=== PATIENT | male | born 1960 | race Two or more races ===

== ENCOUNTER 2020-11-18 06:54 | Inpatient (IN) | payer OTHER ==
[~2020-11-18] VITALS: Ht 162.6 cm; Wt 89.6 kg
[2020-11-18] MEDS ORDERED: ASCORBIC ACID 500 MG TAB PO ONE (08:15)
[2020-11-18] MEDS ORDERED: AZITHROMYCIN 500MG/ 250ML 250 ML IV ONE (08:15)
[2020-11-18] MEDS ORDERED: ZINC SULFATE 220mg CAP or TAB PO ONE (08:15)
[2020-11-18] MEDS ORDERED: BUDESONIDE (INHALATION) 0.5 MG/2 ML NEB NEB ONE (08:15)
[2020-11-18] MEDS ORDERED: cefTRIAXone 1GM/50ML D5W 50 ML IV ONE (08:15)
[2020-11-18] MEDS ORDERED: DexAMETHasone SOD PHOS 10MG/1ML VIAL INJ IV ONE (08:15)
[2020-11-18 08:55] LABS: Hematocrit 41.1 % (41.0-53.0); Hemoglobin 14.1 g/dL (13.5-17.5); Mean Corpuscular Hgb Conc. 34.2 g/dL (32.0-36.0); Mean Corpuscular Volume 87.7 fL (80.0-100.0); Platelet Count (auto) 285 10^3/uL (140-450); Red Blood Cells 4.69 10^6/uL (4.5-5.90); Red Cell Distribution Width 13.1 % (11.8-14.3); White Blood Cell 27.3 10^3/uL (4.4-10.8)
[2020-11-18 09:03] LABS: Basophils % (manual) 0 (0.0-2.0); Blast Cells 0; Eosinophils % (manual) 0 (0-7); Myelocytes % 0; Promyelocytes % 0; Reactive Lymphocytes 0
[2020-11-18 09:13] LABS: Albumin 2.5 g/dL (3.4-5.0); Anion Gap 8 (5-15); Blood Urea Nitrogen 26 mg/dL (7-18); Calcium 8.7 mg/dL (8.5-10.1); Carbon Dioxide 22 mmol/L (21-32); Chloride 100 mmol/L (98-107); Glucose 336 mg/dL (74-106); Magnesium 2.5 mg/dL (1.6-2.6); Potassium 4.2 mmol/L (3.5-5.1); Sodium 130 mmol/L (136-145)
[2020-11-18 09:19] LABS: Alanine Aminotransferase 55 U/L (16-61); Alkaline Phosphatase 141 U/L (45-117); Aspartate Aminotransferase 26 U/L (15-37); BUN/Creatinine Ratio 20.5; Bilirubin, Total 0.8 mg/dL (0.2-1.0); GFR African American 74 mL/min; GFR Non-African American 61 mL/min; Total Protein 7.2 g/dL (6.4-8.2)
[2020-11-18 09:25] LABS: Band Neutrophils % (manual) 5; Lymphocytes % (manual) 5 (10.0-50.0); Metamyelocytes % 1; Monocytes % (manual) 5 (0-12)
[2020-11-18] MEDS ORDERED: MORPHINE SULF INJ 2 MG/ML SYRINGE 1ML IV PRN ×3 (10:15→13:00)
[2020-11-18] MEDS ORDERED: DEXTROSE (50%) 50ML SYRG IV PRN (10:15)
[2020-11-18] MEDS ORDERED: NITROGLYCERIN 0.4 MG SL TAB SL PRN ×2 (10:15→13:00)
[2020-11-18] MEDS: ACCU-CHEK COMFORT CURVE STRIP VI SCH ×3 (10:52→23:21)
[2020-11-18] MEDS: InsuLIN REG 1unit/0.01ml Soln (100units/ml) SC SCH ×3 (10:57→23:21)
[2020-11-18] MEDS ORDERED: REMDESIVIR PER PHARMACY 0 ML IV SCH (13:00)
[2020-11-18] MEDS ORDERED: LORazepam 0.5 MG TAB PO PRN (13:00)
[2020-11-18] MEDS ORDERED: ONDANSETRON HCL 4 MG/2 ML VIAL IV PRN (13:00)
[2020-11-18] MEDS ORDERED: ACETAMINOPHEN 500 MG TAB PO PRN (13:00)
[2020-11-18] MEDS ORDERED: HYDROcodone-ACET 5/325MG TAB PO PRN (13:00)
[2020-11-18] MEDS ORDERED: ALUM & MAG HYDROX-SIMETH LIQ(MAALOX) 30 ML PO PRN (13:00)
[2020-11-18] MEDS ORDERED: DOCUSATE SOD 100 MG CAP PO PRN (13:00)
[2020-11-18] MEDS ORDERED: ALBUMIN 25% 50 ML IV ONE (13:15)
[2020-11-18] MEDS ORDERED: ENOXAPARIN SOD 40 MG/0.4 ML SYRINGE SC ONE (13:15)
[2020-11-18] MEDS ORDERED: FUROSEMIDE 40 MG/4 ML VIAL IV ONE (13:15)
[2020-11-18] MEDS ORDERED: TADA20TA50 PO (14:52)
[2020-11-18] MEDS ORDERED: LISI-646 PO (14:52)
[2020-11-18] MEDS ORDERED: METF-372 PO (14:52)
[2020-11-18] MEDS ORDERED: GLIM-5 PO (14:52)
[2020-11-18] MEDS ORDERED: CARV25TA55 PO (15:23)
[2020-11-18] MEDS ORDERED: CYAN100T7 PO (15:27)
[2020-11-18] MEDS ORDERED: CALC1CAP3 PO (15:27)
[2020-11-18] MEDS ORDERED: MAGN400C2 PO (15:27)
[2020-11-18] MEDS ORDERED: CHOL20007 PO (15:27)
[2020-11-18] MEDS: FUROSEMIDE 40 MG/4 ML VIAL IV SCH (17:56)
[2020-11-18] MEDS ORDERED: FUROSEMIDE 20 MG/2 ML VIAL IV SCH (18:00)
[2020-11-18] MEDS ORDERED: metFORMIN HYDROCHLORIDE 500 MG TAB PO SCH (18:00)
[2020-11-18 18:04] LABS: Basophils # (auto) 0.1 10 ^3/uL (0-0.2); Basophils % (auto) 0.5 % (0.0-2.0); Eosinophils # (auto) 0 10 ^3/uL (0-0.8); Hemoglobin 15.1 g/dL (13.5-17.5); Lymphocytes # (auto) 0.5 10 ^3/uL (0.4-5.4); Lymphocytes % (auto) 1.6 % (10.0-50.0); Mean Corpuscular Hemoglobin 30.9 pg (28.0-32.0); Mean Corpuscular Hgb Conc. 34.4 g/dL (32.0-36.0); Mean Corpuscular Volume 89.9 fL (80.0-100.0); Monocytes # (auto) 0.6 10 ^3/uL (0-1.3); Monocytes % (auto) 2.3 % (0.0-12.0); Neutrophils # (auto) 26.2 10 ^3/uL (1.6-8.6); Neutrophils % (auto) 95.6 % (37.0-80.0); Platelet Count (auto) 328 10^3/uL (140-450); Red Cell Distribution Width 13.2 % (11.8-14.3); White Blood Cell 27.4 10^3/uL (4.4-10.8)
[2020-11-18 18:16] LABS: Albumin 2.8 g/dL (3.4-5.0); Magnesium 2.6 mg/dL (1.6-2.6); Potassium 4.5 mmol/L (3.5-5.1)
[2020-11-18 18:24] LABS: BUN/Creatinine Ratio 22.8; Bilirubin, Total 0.6 mg/dL (0.2-1.0); CRP High Sensitivity 15.7 mg/dL (< 0.3); Total Protein 8.2 g/dL (6.4-8.2)
[2020-11-18 18:34] LABS: Cholesterol 104 mg/dL (< 200); HDL Cholesterol 16 mg/dL (40-59); LDL Cholesterol 80 mg/dL (< 100); Triglycerides 169 mg/dL (< 150)
[2020-11-18 18:36] LABS: Lactic Acid w/Reflex 2.2 mmol/L (0.4-2.0)
[2020-11-18] MEDS ORDERED: REMDESIVIR 200 MG in NS 210ml LOADING DOSE ADULT IV ONE (20:00)
[2020-11-18] MEDS ORDERED: INSULIN LANTUS (GLARGINE) 1 /0.01ml (100units/ml) SC ONE (21:45)
[2020-11-18] MEDS: ENOXAPARIN SOD 40 MG/0.4 ML SYRINGE SC SCH (22:45)
[2020-11-18] MEDS: FAMOTIDINE (10MG/ML) 2ML VL IV SCH (22:45)
[2020-11-18] MEDS: DOXYCYCLINE 100MG/250ML 250 ML IV SCH (22:45)
[2020-11-18] MEDS: ATORVASTATIN 20 MG TAB PO SCH (22:45)
[2020-11-19] MEDS: BUDESONIDE (INHALATION) 180 MCG IH IN SCH ×3 (00:23→22:00)
[2020-11-19] MEDS: ACCU-CHEK COMFORT CURVE STRIP VI SCH ×4 (08:32→22:08)
[2020-11-19 08:33] LABS: Basophils # (auto) 0 10 ^3/uL (0-0.2); Basophils % (auto) 0.2 % (0.0-2.0); Eosinophils # (auto) 0 10 ^3/uL (0-0.8); Hematocrit 41.7 % (41.0-53.0); Hemoglobin 14.5 g/dL (13.5-17.5); Lymphocytes # (auto) 0.6 10 ^3/uL (0.4-5.4); Lymphocytes % (auto) 2.4 % (10.0-50.0); Mean Corpuscular Hemoglobin 31.5 pg (28.0-32.0); Mean Corpuscular Hgb Conc. 34.8 g/dL (32.0-36.0); Mean Corpuscular Volume 90.5 fL (80.0-100.0); Monocytes # (auto) 1.2 10 ^3/uL (0-1.3); Monocytes % (auto) 5.1 % (0.0-12.0); Neutrophils # (auto) 21.7 10 ^3/uL (1.6-8.6); Neutrophils % (auto) 92.3 % (37.0-80.0); Platelet Count (auto) 310 10^3/uL (140-450); White Blood Cell 23.5 10^3/uL (4.4-10.8)
[2020-11-19] MEDS: FUROSEMIDE 40 MG/4 ML VIAL IV SCH (08:38)
[2020-11-19] MEDS: InsuLIN REG 1unit/0.01ml Soln (100units/ml) SC SCH ×4 (08:39→22:12)
[2020-11-19] MEDS: INSULIN LANTUS (GLARGINE) 1 /0.01ml (100units/ml) SC SCH ×2 (08:40→22:12)
[2020-11-19 08:49] LABS: INR 1.08 (0.9-1.15); Partial Thromboplastin Time 26.4 sec (23.0-31.2)
[2020-11-19] MEDS: ALBUTEROL SULF HFA 90MCG INH 200DOSE IN PRN (08:54)
[2020-11-19 09:06] LABS: Potassium 4.3 mmol/L (3.5-5.1)
[2020-11-19 09:14] LABS: Albumin 2.4 g/dL (3.4-5.0); BUN/Creatinine Ratio 26.5; Bilirubin, Total 0.5 mg/dL (0.2-1.0); Calcium 8.4 mg/dL (8.5-10.1); Magnesium 2.7 mg/dL (1.6-2.6); Phosphorus 3.6 mg/dL (2.5-4.90); Total Protein 7.1 g/dL (6.4-8.2)
[2020-11-19 09:30] LABS: Urine Bacteria NONE SEEN /hpf (None Seen); Urine Blood Negative /uL (Negative); Urine Specific Gravity 1.022 (1.001-1.035); Urine WBC 1 /hpf (0 - 3)
[2020-11-19 09:53] LABS: Alcohol, Urine < 3.0 mg/dL (0-10); Amphetamine Screen, Urine NEGATIVE (NEGATIVE); Barbiturate Scree,Urine NEGATIVE (NEGATIVE); Benzodiazephine Screen, Urine NEGATIVE (NEGATIVE); Cannabinoid Screen, Urine NEGATIVE (NEGATIVE); Cocaine Screen, Urine NEGATIVE (NEGATIVE); Opiate Scree,Urine NEGATIVE (NEGATIVE); Phencyclidine Screen, Urine NEGATIVE (NEGATIVE)
[2020-11-19] MEDS ORDERED: LISINOPRIL 20 MG TAB PO SCH (10:00)
[2020-11-19] MEDS: DexAMETHasone SOD PHOS 10MG/1ML VIAL INJ IV SCH (10:41)
[2020-11-19] MEDS: FAMOTIDINE (10MG/ML) 2ML VL IV SCH ×2 (10:42→22:07)
[2020-11-19] MEDS: ZINC SULFATE 220mg CAP or TAB PO SCH (10:45)
[2020-11-19] MEDS: ASPirin 81 mg TAB PO SCH (10:45)
[2020-11-19] MEDS: DOXYCYCLINE 100MG/250ML 250 ML IV SCH (10:45)
[2020-11-19] MEDS: CHOLECALCIFEROL (VITD3) 2,000 UNIT CAP PO SCH (10:46)
[2020-11-19] MEDS: CARVEDILOL 12.5 MG TAB PO SCH (10:46)
[2020-11-19] MEDS: ASCORBIC ACID 1,000 MG TAB PO SCH (10:46)
[2020-11-19] MEDS: ENOXAPARIN SOD 40 MG/0.4 ML SYRINGE SC SCH ×2 (10:47→22:08)
[2020-11-19] MEDS ORDERED: levoFLOXacin 500MG 100 ML IV ONE (11:15)
[2020-11-19] MEDS ORDERED: diphenhdrAMINE HCL 50 MG/1 ML VL IV PRN (11:30)
[2020-11-19] MEDS: CLINDAMYCIN 600MG IV 50 ML IV SCH ×2 (14:00→22:07)
[2020-11-19] MEDS: REMDESIVIR 100mg 100 MG in SODIUM CHL 0.9% 230 ML IV SCH (15:00)
[2020-11-19 16:00] VITALS: BP 138/68
[2020-11-19] MEDS: ATORVASTATIN 20 MG TAB PO SCH (22:07)
[2020-11-20] VITALS: BP 149/67
[2020-11-20] MEDS: ALBUTEROL SULF HFA 90MCG INH 200DOSE IN PRN ×3 (00:11→20:05)
[2020-11-20 01:50] VITALS: BP 129/58
[2020-11-20 02:19] VITALS: BP 158/80
[2020-11-20 04:27] VITALS: BP 148/70
[2020-11-20] MEDS: CLINDAMYCIN 600MG IV 50 ML IV SCH ×3 (06:02→22:39)
[2020-11-20] MEDS: ACCU-CHEK COMFORT CURVE STRIP VI SCH ×4 (06:16→22:00)
[2020-11-20] MEDS: InsuLIN REG 1unit/0.01ml Soln (100units/ml) SC SCH ×4 (06:23→22:39)
[2020-11-20] MEDS: INSULIN LANTUS (GLARGINE) 1 /0.01ml (100units/ml) SC SCH ×2 (06:23→22:37)
[2020-11-20 08:00] VITALS: BP 172/76
[2020-11-20 08:45] LABS: Albumin 2.7 g/dL (3.4-5.0); Calcium 8.9 mg/dL (8.5-10.1); Potassium 4.1 mmol/L (3.5-5.1)
[2020-11-20 08:47] LABS: BUN/Creatinine Ratio 29.9
[2020-11-20 08:50] LABS: Bilirubin, Total 0.5 mg/dL (0.2-1.0); Total Protein 7.1 g/dL (6.4-8.2)
[2020-11-20] MEDS ORDERED: IVERMECTIN 3 MG TAB PO ONE (10:00)
[2020-11-20] MEDS: BUDESONIDE (INHALATION) 180 MCG IH IN SCH ×2 (10:00→20:05)
[2020-11-20] MEDS: DexAMETHasone SOD PHOS 10MG/1ML VIAL INJ IV SCH (10:32)
[2020-11-20] MEDS: FAMOTIDINE (10MG/ML) 2ML VL IV SCH ×2 (10:32→22:39)
[2020-11-20] MEDS: levoFLOXacin 500MG 100 ML IV SCH (10:32)
[2020-11-20] MEDS: CHOLECALCIFEROL (VITD3) 2,000 UNIT CAP PO SCH (10:33)
[2020-11-20] MEDS: CARVEDILOL 12.5 MG TAB PO SCH (10:33)
[2020-11-20] MEDS: ASCORBIC ACID 1,000 MG TAB PO SCH (10:33)
[2020-11-20] MEDS: ASPirin 81 mg TAB PO SCH (10:33)
[2020-11-20] MEDS: ZINC SULFATE 220mg CAP or TAB PO SCH (10:33)
[2020-11-20] MEDS: ENOXAPARIN SOD 40 MG/0.4 ML SYRINGE SC SCH ×2 (10:34→22:37)
[2020-11-20] MEDS: REMDESIVIR 100mg 100 MG in SODIUM CHL 0.9% 230 ML IV SCH (15:11)
[2020-11-20 16:00] VITALS: BP 147/69
[2020-11-20] MEDS: ATORVASTATIN 20 MG TAB PO SCH (22:37)
[2020-11-21] VITALS: BP 173/68
[2020-11-21] MEDS ORDERED: cloNIDine HCL 0.1 MG TAB PO ONE (01:00)
[2020-11-21] MEDS: CLINDAMYCIN 600MG IV 50 ML IV SCH ×2 (06:26→14:15)
[2020-11-21] MEDS: InsuLIN REG 1unit/0.01ml Soln (100units/ml) SC SCH ×4 (06:26→22:06)
[2020-11-21] MEDS: INSULIN LANTUS (GLARGINE) 1 /0.01ml (100units/ml) SC SCH ×2 (06:27→22:09)
[2020-11-21] MEDS: ACCU-CHEK COMFORT CURVE STRIP VI SCH ×4 (06:34→22:10)
[2020-11-21 07:20] LABS: Basophils # (auto) 0 10 ^3/uL (0-0.2); Basophils % (auto) 0.1 % (0.0-2.0); Eosinophils # (auto) 0 10 ^3/uL (0-0.8); Eosinophils % (auto) 0.1 % (0.0-7.0); Hematocrit 43.6 % (41.0-53.0); Hemoglobin 14.8 g/dL (13.5-17.5); Lymphocytes # (auto) 0.9 10 ^3/uL (0.4-5.4); Lymphocytes % (auto) 5.2 % (10.0-50.0); Mean Corpuscular Volume 88.3 fL (80.0-100.0); Monocytes # (auto) 0.8 10 ^3/uL (0-1.3); Monocytes % (auto) 4.8 % (0.0-12.0); Neutrophils # (auto) 15.4 10 ^3/uL (1.6-8.6); Neutrophils % (auto) 89.8 % (37.0-80.0); Platelet Count (auto) 305 10^3/uL (140-450); Red Blood Cells 4.93 10^6/uL (4.5-5.90); Red Cell Distribution Width 12.9 % (11.8-14.3); White Blood Cell 17.2 10^3/uL (4.4-10.8)
[2020-11-21 08:00] VITALS: BP 122/47
[2020-11-21] MEDS: BUDESONIDE (INHALATION) 180 MCG IH IN SCH ×2 (10:24→19:20)
[2020-11-21] MEDS: ALBUTEROL SULF HFA 90MCG INH 200DOSE IN PRN ×2 (10:24→19:20)
[2020-11-21] MEDS: levoFLOXacin 500MG 100 ML IV SCH (12:07)
[2020-11-21] MEDS: DexAMETHasone SOD PHOS 10MG/1ML VIAL INJ IV SCH (12:07)
[2020-11-21] MEDS: FAMOTIDINE (10MG/ML) 2ML VL IV SCH ×2 (12:08→22:11)
[2020-11-21] MEDS: ZINC SULFATE 220mg CAP or TAB PO SCH (12:08)
[2020-11-21] MEDS: ASPirin 81 mg TAB PO SCH (12:08)
[2020-11-21] MEDS: ENOXAPARIN SOD 40 MG/0.4 ML SYRINGE SC SCH ×2 (12:09→22:10)
[2020-11-21] MEDS: ASCORBIC ACID 1,000 MG TAB PO SCH (12:09)
[2020-11-21] MEDS: CHOLECALCIFEROL (VITD3) 2,000 UNIT CAP PO SCH (12:09)
[2020-11-21] MEDS: CARVEDILOL 12.5 MG TAB PO SCH (12:43)
[2020-11-21] MEDS ORDERED: IVERMECTIN 3 MG TAB PO ONE (15:12)
[2020-11-21] MEDS ORDERED: POTASSIUM CHL 10 Meq TABLET PO ONE (15:15)
[2020-11-21] MEDS ORDERED: FUROSEMIDE 40 MG/4 ML VIAL IV ONE (15:30)
[2020-11-21] MEDS: REMDESIVIR 100mg 100 MG in SODIUM CHL 0.9% 230 ML IV SCH (15:57)
[2020-11-21 16:00] VITALS: BP 114/67
[2020-11-21] MEDS: ATORVASTATIN 20 MG TAB PO SCH (22:10)
[2020-11-22] VITALS: BP 120/46
[2020-11-22] MEDS: InsuLIN REG 1unit/0.01ml Soln (100units/ml) SC SCH ×4 (05:32→21:36)
[2020-11-22] MEDS: ACCU-CHEK COMFORT CURVE STRIP VI SCH ×4 (05:33→21:42)
[2020-11-22] MEDS: INSULIN LANTUS (GLARGINE) 1 /0.01ml (100units/ml) SC SCH ×2 (05:33→21:37)
[2020-11-22 06:40] LABS: Basophils # (auto) 0 10 ^3/uL (0-0.2); Basophils % (auto) 0.2 % (0.0-2.0); Eosinophils # (auto) 0 10 ^3/uL (0-0.8); Eosinophils % (auto) 0.3 % (0.0-7.0); Hematocrit 44.4 % (41.0-53.0); Hemoglobin 14.9 g/dL (13.5-17.5); Lymphocytes # (auto) 0.7 10 ^3/uL (0.4-5.4); Lymphocytes % (auto) 4.4 % (10.0-50.0); Mean Corpuscular Hemoglobin 29.5 pg (28.0-32.0); Mean Corpuscular Hgb Conc. 33.5 g/dL (32.0-36.0); Mean Corpuscular Volume 87.9 fL (80.0-100.0); Monocytes # (auto) 0.7 10 ^3/uL (0-1.3); Monocytes % (auto) 4.4 % (0.0-12.0); Neutrophils # (auto) 14.4 10 ^3/uL (1.6-8.6); Neutrophils % (auto) 90.7 % (37.0-80.0); Nucleated Red Blood Cells % 0.2 %; Platelet Count (auto) 305 10^3/uL (140-450); Red Blood Cells 5.05 10^6/uL (4.5-5.90); Red Cell Distribution Width 13.3 % (11.8-14.3); White Blood Cell 15.8 10^3/uL (4.4-10.8)
[2020-11-22 06:43] LABS: INR 1.17 (0.9-1.15)
[2020-11-22 06:44] LABS: Albumin 2.2 g/dL (3.4-5.0); Calcium 8.2 mg/dL (8.5-10.1); Magnesium 2.3 mg/dL (1.6-2.6); Potassium 4.2 mmol/L (3.5-5.1)
[2020-11-22 06:48] LABS: Lactic Acid w/Reflex 2.3 mmol/L (0.4-2.0)
[2020-11-22 06:55] LABS: BUN/Creatinine Ratio 19.2; Bilirubin, Total 0.5 mg/dL (0.2-1.0); CRP High Sensitivity 8.89 mg/dL (< 0.3); Total Protein 6.5 g/dL (6.4-8.2)
[2020-11-22] MEDS: ALBUTEROL SULF HFA 90MCG INH 200DOSE IN PRN ×2 (07:10→20:21)
[2020-11-22] MEDS: BUDESONIDE (INHALATION) 180 MCG IH IN SCH ×2 (07:10→20:21)
[2020-11-22 07:58] VITALS: BP 149/71
[2020-11-22] MEDS: ENOXAPARIN SOD 40 MG/0.4 ML SYRINGE SC SCH ×2 (10:00→21:42)
[2020-11-22] MEDS: DexAMETHasone SOD PHOS 10MG/1ML VIAL INJ IV SCH (10:00)
[2020-11-22] MEDS: ASCORBIC ACID 1,000 MG TAB PO SCH (10:00)
[2020-11-22] MEDS: CHOLECALCIFEROL (VITD3) 2,000 UNIT CAP PO SCH (10:00)
[2020-11-22] MEDS: levoFLOXacin 500MG 100 ML IV SCH (10:00)
[2020-11-22] MEDS: FUROSEMIDE 40 MG/4 ML VIAL IV SCH (10:00)
[2020-11-22] MEDS: ZINC SULFATE 220mg CAP or TAB PO SCH (10:00)
[2020-11-22] MEDS: ASPirin 81 mg TAB PO SCH (10:00)
[2020-11-22] MEDS: CARVEDILOL 12.5 MG TAB PO SCH ×2 (10:00→21:41)
[2020-11-22] MEDS: POTASSIUM CHL 10 Meq TABLET PO SCH (10:00)
[2020-11-22] MEDS: FAMOTIDINE (10MG/ML) 2ML VL IV SCH ×2 (10:00→21:41)
[2020-11-22] MEDS: IVERMECTIN 3 MG TAB PO SCH (11:30)
[2020-11-22 15:40] VITALS: BP 95/53
[2020-11-22] MEDS: REMDESIVIR 100mg 100 MG in SODIUM CHL 0.9% 230 ML IV SCH (16:00)
[2020-11-22] MEDS ORDERED: methylPREDNISolone SOD SUCC 40 MG/ML VL IV ONE (16:30)
[2020-11-22] MEDS ORDERED: diphenhdrAMINE HCL 50 MG/1 ML VL IV ONE (16:30)
[2020-11-22] MEDS ORDERED: ACETAMINOPHEN 650 mg PER 20.3 mL UD PO ONE (16:30)
[2020-11-22] MEDS ORDERED: TOCILIZUMAB 400 MG in SODIUM CHL 0.9% 80 ML IV ONE (17:00)
[2020-11-22] MEDS: ATORVASTATIN 20 MG TAB PO SCH (21:40)
[2020-11-22] MEDS ORDERED: DOXYCYCLINE 100 MG TAB/CAP PO SCH (22:00)
[2020-11-22 23:34] VITALS: BP 117/66
[2020-11-23] MEDS: InsuLIN REG 1unit/0.01ml Soln (100units/ml) SC SCH ×4 (05:35→19:47)
[2020-11-23] MEDS: INSULIN LANTUS (GLARGINE) 1 /0.01ml (100units/ml) SC SCH ×2 (05:36→21:25)
[2020-11-23] MEDS: ACCU-CHEK COMFORT CURVE STRIP VI SCH ×4 (05:36→19:48)
[2020-11-23] MEDS: BUDESONIDE (INHALATION) 180 MCG IH IN SCH ×2 (06:45→19:37)
[2020-11-23] MEDS: ALBUTEROL SULF HFA 90MCG INH 200DOSE IN PRN ×2 (06:45→19:37)
[2020-11-23 06:56] LABS: Basophils # (auto) 0 10 ^3/uL (0-0.2); Basophils % (auto) 0.2 % (0.0-2.0); Eosinophils # (auto) 0 10 ^3/uL (0-0.8); Hematocrit 42.7 % (41.0-53.0); Hemoglobin 14.4 g/dL (13.5-17.5); Lymphocytes # (auto) 0.5 10 ^3/uL (0.4-5.4); Lymphocytes % (auto) 3.3 % (10.0-50.0); Mean Corpuscular Hemoglobin 29.9 pg (28.0-32.0); Mean Corpuscular Hgb Conc. 33.8 g/dL (32.0-36.0); Mean Corpuscular Volume 88.6 fL (80.0-100.0); Monocytes # (auto) 0.4 10 ^3/uL (0-1.3); Monocytes % (auto) 2.8 % (0.0-12.0); Neutrophils # (auto) 13.6 10 ^3/uL (1.6-8.6); Neutrophils % (auto) 93.7 % (37.0-80.0); Platelet Count (auto) 331 10^3/uL (140-450); Red Blood Cells 4.82 10^6/uL (4.5-5.90); Red Cell Distribution Width 13.3 % (11.8-14.3); White Blood Cell 14.5 10^3/uL (4.4-10.8)
[2020-11-23 07:00] LABS: BUN/Creatinine Ratio 20.6; Calcium 8.7 mg/dL (8.5-10.1); Potassium 4.7 mmol/L (3.5-5.1)
[2020-11-23 08:00] VITALS: BP 145/57
[2020-11-23] MEDS ORDERED: ACETAMINOPHEN 650 mg PER 20.3 mL UD PO ONE ×2 (10:00→14:30)
[2020-11-23] MEDS ORDERED: diphenhdrAMINE HCL 50 MG/1 ML VL IV ONE ×2 (10:00→14:30)
[2020-11-23] MEDS ORDERED: TOCILIZUMAB 400 MG in SODIUM CHL 0.9% 80 ML IV ONE ×2 (10:30→15:00)
[2020-11-23] MEDS: FUROSEMIDE 40 MG/4 ML VIAL IV SCH (12:02)
[2020-11-23] MEDS: DexAMETHasone SOD PHOS 10MG/1ML VIAL INJ IV SCH ×2 (12:03→21:34)
[2020-11-23] MEDS: ZINC SULFATE 220mg CAP or TAB PO SCH (12:03)
[2020-11-23] MEDS: ASPirin 81 mg TAB PO SCH (12:03)
[2020-11-23] MEDS: CARVEDILOL 12.5 MG TAB PO SCH ×2 (12:03→21:35)
[2020-11-23] MEDS: FAMOTIDINE (10MG/ML) 2ML VL IV SCH ×2 (12:03→21:34)
[2020-11-23] MEDS: IVERMECTIN 3 MG TAB PO SCH (12:04)
[2020-11-23] MEDS: POTASSIUM CHL 10 Meq TABLET PO SCH (12:04)
[2020-11-23] MEDS: ENOXAPARIN SOD 40 MG/0.4 ML SYRINGE SC SCH ×2 (12:05→21:36)
[2020-11-23] MEDS: CHOLECALCIFEROL (VITD3) 2,000 UNIT CAP PO SCH (12:05)
[2020-11-23] MEDS: ASCORBIC ACID 1,000 MG TAB PO SCH (12:05)
[2020-11-23] MEDS: PIPERACILLIN-TAZOB 3.375GM 100 ML IV SCH ×2 (12:09→18:40)
[2020-11-23] MEDS ORDERED: FUROSEMIDE 20 MG/2 ML VIAL IV ONE (14:15)
[2020-11-23] MEDS ORDERED: methylPREDNISolone SOD SUCC 40 MG/ML VL IV ONE (14:30)
[2020-11-23 16:00] VITALS: BP 154/69
[2020-11-23] MEDS ORDERED: DEXTROSE (50%) 50ML SYRG IV PRN (18:30)
[2020-11-23] MEDS ORDERED: InsuLIN REG 1unit/0.01ml Soln (100units/ml) IV ONE ×2 (18:30→21:00)
[2020-11-23] MEDS: ATORVASTATIN 20 MG TAB PO SCH (21:36)
[2020-11-23] MEDS ORDERED: INSULIN LANTUS (GLARGINE) 1 /0.01ml (100units/ml) SC SCH (22:00)
[2020-11-24] VITALS (7 sets, daily range): BP systolic 113–155; BP diastolic 57–79
[2020-11-24] MEDS: ACCU-CHEK COMFORT CURVE STRIP VI SCH ×7 (00:01→23:22)
[2020-11-24] MEDS: PIPERACILLIN-TAZOB 3.375GM 100 ML IV SCH ×4 (00:02→18:27)
[2020-11-24] MEDS: InsuLIN REG 1unit/0.01ml Soln (100units/ml) SC SCH ×7 (03:59→23:35)
[2020-11-24 06:23] LABS: Basophils # (auto) 0 10 ^3/uL (0-0.2); Basophils % (auto) 0.1 % (0.0-2.0); Eosinophils # (auto) 0 10 ^3/uL (0-0.8); Hematocrit 46.6 % (41.0-53.0); Hemoglobin 15.7 g/dL (13.5-17.5); Lymphocytes # (auto) 0.6 10 ^3/uL (0.4-5.4); Mean Corpuscular Hemoglobin 29.5 pg (28.0-32.0); Mean Corpuscular Hgb Conc. 33.6 g/dL (32.0-36.0); Mean Corpuscular Volume 87.7 fL (80.0-100.0); Monocytes # (auto) 0.5 10 ^3/uL (0-1.3); Monocytes % (auto) 2.4 % (0.0-12.0); Neutrophils # (auto) 17.7 10 ^3/uL (1.6-8.6); Neutrophils % (auto) 94.5 % (37.0-80.0); Nucleated Red Blood Cells % 0.1 %; Platelet Count (auto) 416 10^3/uL (140-450); Red Blood Cells 5.32 10^6/uL (4.5-5.90); Red Cell Distribution Width 13.3 % (11.8-14.3); White Blood Cell 18.8 10^3/uL (4.4-10.8)
[2020-11-24] MEDS: INSULIN LANTUS (GLARGINE) 1 /0.01ml (100units/ml) SC SCH ×2 (06:28→21:20)
[2020-11-24] MEDS: ALBUTEROL SULF HFA 90MCG INH 200DOSE IN PRN ×2 (06:40→19:40)
[2020-11-24] MEDS: BUDESONIDE (INHALATION) 180 MCG IH IN SCH ×2 (06:40→19:39)
[2020-11-24] MEDS: DexAMETHasone SOD PHOS 10MG/1ML VIAL INJ IV SCH ×2 (09:44→21:13)
[2020-11-24] MEDS: ASPirin 81 mg TAB PO SCH (09:44)
[2020-11-24] MEDS: FUROSEMIDE 40 MG/4 ML VIAL IV SCH (09:44)
[2020-11-24] MEDS: ZINC SULFATE 220mg CAP or TAB PO SCH (09:45)
[2020-11-24] MEDS: FAMOTIDINE (10MG/ML) 2ML VL IV SCH ×2 (09:45→21:13)
[2020-11-24] MEDS: ASCORBIC ACID 1,000 MG TAB PO SCH (09:45)
[2020-11-24] MEDS: CARVEDILOL 12.5 MG TAB PO SCH ×2 (09:45→21:55)
[2020-11-24] MEDS: POTASSIUM CHL 10 Meq TABLET PO SCH (09:45)
[2020-11-24] MEDS: ENOXAPARIN SOD 40 MG/0.4 ML SYRINGE SC SCH ×2 (09:46→21:14)
[2020-11-24] MEDS: CHOLECALCIFEROL (VITD3) 2,000 UNIT CAP PO SCH (09:46)
[2020-11-24] MEDS: IVERMECTIN 3 MG TAB PO SCH (09:47)
[2020-11-24] MEDS: ATORVASTATIN 20 MG TAB PO SCH (21:13)
[2020-11-25 00:25] VITALS: BP 138/70
[2020-11-25] MEDS: PIPERACILLIN-TAZOB 3.375GM 100 ML IV SCH ×5 (00:26→23:34)
[2020-11-25 01:25] VITALS: BP 134/71
[2020-11-25] MEDS: ACCU-CHEK COMFORT CURVE STRIP VI SCH ×6 (04:26→23:34)
[2020-11-25] MEDS: InsuLIN REG 1unit/0.01ml Soln (100units/ml) SC SCH ×6 (04:29→23:37)
[2020-11-25 06:38] LABS: Basophils # (auto) 0 10 ^3/uL (0-0.2); Basophils % (auto) 0.2 % (0.0-2.0); Eosinophils # (auto) 0 10 ^3/uL (0-0.8); Hematocrit 46.1 % (41.0-53.0); Hemoglobin 15.7 g/dL (13.5-17.5); Lymphocytes # (auto) 0.6 10 ^3/uL (0.4-5.4); Lymphocytes % (auto) 3.5 % (10.0-50.0); Mean Corpuscular Hemoglobin 29.7 pg (28.0-32.0); Mean Corpuscular Hgb Conc. 34.2 g/dL (32.0-36.0); Monocytes # (auto) 0.8 10 ^3/uL (0-1.3); Monocytes % (auto) 4.4 % (0.0-12.0); Neutrophils # (auto) 16.2 10 ^3/uL (1.6-8.6); Neutrophils % (auto) 91.9 % (37.0-80.0); Nucleated Red Blood Cells % 0.3 %; Platelet Count (auto) 435 10^3/uL (140-450); Red Blood Cells 5.29 10^6/uL (4.5-5.90); White Blood Cell 17.7 10^3/uL (4.4-10.8)
[2020-11-25] MEDS: INSULIN LANTUS (GLARGINE) 1 /0.01ml (100units/ml) SC SCH ×2 (06:48→21:11)
[2020-11-25 06:58] LABS: BUN/Creatinine Ratio 31.5; Calcium 8.6 mg/dL (8.5-10.1); Potassium 4.1 mmol/L (3.5-5.1)
[2020-11-25] MEDS: BUDESONIDE (INHALATION) 180 MCG IH IN SCH ×2 (07:40→19:20)
[2020-11-25 07:43] VITALS: BP 122/65
[2020-11-25] MEDS: FUROSEMIDE 40 MG/4 ML VIAL IV SCH (09:30)
[2020-11-25] MEDS: DexAMETHasone SOD PHOS 10MG/1ML VIAL INJ IV SCH ×2 (09:30→21:07)
[2020-11-25] MEDS: POTASSIUM CHL 10 Meq TABLET PO SCH (09:31)
[2020-11-25] MEDS: ZINC SULFATE 220mg CAP or TAB PO SCH (09:31)
[2020-11-25] MEDS: FAMOTIDINE (10MG/ML) 2ML VL IV SCH ×2 (09:31→21:08)
[2020-11-25] MEDS: ASPirin 81 mg TAB PO SCH (09:31)
[2020-11-25] MEDS: IVERMECTIN 3 MG TAB PO SCH (09:32)
[2020-11-25] MEDS: CARVEDILOL 12.5 MG TAB PO SCH ×2 (09:32→21:08)
[2020-11-25] MEDS: CHOLECALCIFEROL (VITD3) 2,000 UNIT CAP PO SCH (09:33)
[2020-11-25] MEDS: ASCORBIC ACID 1,000 MG TAB PO SCH (09:33)
[2020-11-25] MEDS: ENOXAPARIN SOD 40 MG/0.4 ML SYRINGE SC SCH ×2 (09:38→21:09)
[2020-11-25 16:00] VITALS: BP 115/50
[2020-11-25] MEDS: ALBUTEROL SULF HFA 90MCG INH 200DOSE IN PRN (19:20)
[2020-11-25] MEDS: ATORVASTATIN 20 MG TAB PO SCH (21:08)
[2020-11-26] VITALS: BP 122/58
[2020-11-26] MEDS: ACCU-CHEK COMFORT CURVE STRIP VI SCH ×5 (04:09→22:00)
[2020-11-26] MEDS: InsuLIN REG 1unit/0.01ml Soln (100units/ml) SC SCH ×4 (04:13→18:07)
[2020-11-26] MEDS: PIPERACILLIN-TAZOB 3.375GM 100 ML IV SCH ×4 (05:32→23:48)
[2020-11-26] MEDS: INSULIN LANTUS (GLARGINE) 1 /0.01ml (100units/ml) SC SCH (06:29)
[2020-11-26 07:04] LABS: Basophils # (auto) 0 10 ^3/uL (0-0.2); Basophils % (auto) 0.1 % (0.0-2.0); Eosinophils # (auto) 0 10 ^3/uL (0-0.8); Eosinophils % (auto) 0.2 % (0.0-7.0); Hematocrit 45.1 % (41.0-53.0); Hemoglobin 15.8 g/dL (13.5-17.5); Mean Corpuscular Hemoglobin 30.9 pg (28.0-32.0); Mean Corpuscular Hgb Conc. 35.1 g/dL (32.0-36.0); Mean Corpuscular Volume 88.1 fL (80.0-100.0); Monocytes # (auto) 0.8 10 ^3/uL (0-1.3); Monocytes % (auto) 5.9 % (0.0-12.0); Neutrophils % (auto) 85.8 % (37.0-80.0); Nucleated Red Blood Cells % 1.4 %; Platelet Count (auto) 393 10^3/uL (140-450); Red Blood Cells 5.12 10^6/uL (4.5-5.90); White Blood Cell 12.8 10^3/uL (4.4-10.8)
[2020-11-26 07:15] LABS: BUN/Creatinine Ratio 30.6; Calcium 8.5 mg/dL (8.5-10.1); Magnesium 2.2 mg/dL (1.6-2.6)
[2020-11-26] MEDS: BUDESONIDE (INHALATION) 180 MCG IH IN SCH ×2 (07:45→18:35)
[2020-11-26 08:00] VITALS: BP 119/63
[2020-11-26] MEDS: DexAMETHasone SOD PHOS 10MG/1ML VIAL INJ IV SCH ×2 (09:42→23:46)
[2020-11-26] MEDS: FAMOTIDINE (10MG/ML) 2ML VL IV SCH ×2 (09:43→23:47)
[2020-11-26] MEDS: ASPirin 81 mg TAB PO SCH (09:43)
[2020-11-26] MEDS: ZINC SULFATE 220mg CAP or TAB PO SCH (09:43)
[2020-11-26] MEDS: FUROSEMIDE 40 MG/4 ML VIAL IV SCH (09:43)
[2020-11-26] MEDS: POTASSIUM CHL 10 Meq TABLET PO SCH (09:44)
[2020-11-26] MEDS: CARVEDILOL 12.5 MG TAB PO SCH ×2 (09:44→23:47)
[2020-11-26] MEDS: CHOLECALCIFEROL (VITD3) 2,000 UNIT CAP PO SCH (09:45)
[2020-11-26] MEDS: ASCORBIC ACID 1,000 MG TAB PO SCH (09:45)
[2020-11-26] MEDS: ENOXAPARIN SOD 40 MG/0.4 ML SYRINGE SC SCH ×2 (09:46→23:48)
[2020-11-26 16:00] VITALS: BP 117/57
[2020-11-26] MEDS: ALBUTEROL SULF HFA 90MCG INH 200DOSE IN PRN (19:19)
[2020-11-26] MEDS: ATORVASTATIN 20 MG TAB PO SCH (23:47)
[2020-11-27] VITALS: BP 115/55
[2020-11-27] MEDS: InsuLIN REG 1unit/0.01ml Soln (100units/ml) SC SCH ×5 (00:11→22:06)
[2020-11-27] MEDS: INSULIN LANTUS (GLARGINE) 1 /0.01ml (100units/ml) SC SCH ×3 (00:11→22:06)
[2020-11-27] MEDS: ACCU-CHEK COMFORT CURVE STRIP VI SCH ×4 (06:40→22:06)
[2020-11-27] MEDS: PIPERACILLIN-TAZOB 3.375GM 100 ML IV SCH ×3 (06:41→17:46)
[2020-11-27] MEDS: BUDESONIDE (INHALATION) 180 MCG IH IN SCH ×2 (07:05→21:51)
[2020-11-27 08:00] VITALS: BP 122/57
[2020-11-27] MEDS: ALBUTEROL SULF HFA 90MCG INH 200DOSE IN PRN (09:26)
[2020-11-27] MEDS: DexAMETHasone SOD PHOS 10MG/1ML VIAL INJ IV SCH ×2 (09:42→22:04)
[2020-11-27] MEDS: ASPirin 81 mg TAB PO SCH (09:42)
[2020-11-27] MEDS: FAMOTIDINE (10MG/ML) 2ML VL IV SCH ×2 (09:43→22:04)
[2020-11-27] MEDS: ZINC SULFATE 220mg CAP or TAB PO SCH (09:43)
[2020-11-27] MEDS: CARVEDILOL 12.5 MG TAB PO SCH ×2 (09:44→22:05)
[2020-11-27] MEDS: ENOXAPARIN SOD 40 MG/0.4 ML SYRINGE SC SCH ×2 (09:45→22:05)
[2020-11-27] MEDS: ASCORBIC ACID 1,000 MG TAB PO SCH (09:45)
[2020-11-27] MEDS: CHOLECALCIFEROL (VITD3) 2,000 UNIT CAP PO SCH (09:45)
[2020-11-27 16:00] VITALS: BP 133/59
[2020-11-27] MEDS: ATORVASTATIN 20 MG TAB PO SCH (22:05)
[2020-11-28] VITALS: BP 163/81
[2020-11-28] MEDS: PIPERACILLIN-TAZOB 3.375GM 100 ML IV SCH ×4 (00:24→18:32)
[2020-11-28 02:00] VITALS: BP 159/77
[2020-11-28] MEDS: ACCU-CHEK COMFORT CURVE STRIP VI SCH ×4 (05:52→21:45)
[2020-11-28] MEDS: InsuLIN REG 1unit/0.01ml Soln (100units/ml) SC SCH ×4 (05:53→21:44)
[2020-11-28] MEDS: INSULIN LANTUS (GLARGINE) 1 /0.01ml (100units/ml) SC SCH ×2 (05:53→21:44)
[2020-11-28] MEDS: ALBUTEROL SULF HFA 90MCG INH 200DOSE IN PRN ×2 (06:23→19:06)
[2020-11-28] MEDS: BUDESONIDE (INHALATION) 180 MCG IH IN SCH ×2 (06:23→19:06)
[2020-11-28 08:00] VITALS: BP 125/56
[2020-11-28] MEDS: DexAMETHasone SOD PHOS 10MG/1ML VIAL INJ IV SCH ×2 (09:39→21:43)
[2020-11-28] MEDS: FAMOTIDINE (10MG/ML) 2ML VL IV SCH ×2 (09:39→21:42)
[2020-11-28] MEDS: ASPirin 81 mg TAB PO SCH (09:40)
[2020-11-28] MEDS: ZINC SULFATE 220mg CAP or TAB PO SCH (09:40)
[2020-11-28] MEDS: CARVEDILOL 12.5 MG TAB PO SCH ×2 (09:40→21:42)
[2020-11-28] MEDS: ENOXAPARIN SOD 40 MG/0.4 ML SYRINGE SC SCH ×2 (09:41→21:47)
[2020-11-28] MEDS: CHOLECALCIFEROL (VITD3) 2,000 UNIT CAP PO SCH (09:41)
[2020-11-28] MEDS: ASCORBIC ACID 1,000 MG TAB PO SCH (09:41)
[2020-11-28 15:46] VITALS: BP 153/73
[2020-11-28] MEDS: ATORVASTATIN 20 MG TAB PO SCH (21:41)
[2020-11-29] VITALS: BP 147/69
[2020-11-29] MEDS: PIPERACILLIN-TAZOB 3.375GM 100 ML IV SCH ×4 (00:29→18:00)
[2020-11-29] MEDS: InsuLIN REG 1unit/0.01ml Soln (100units/ml) SC SCH ×3 (06:21→17:00)
[2020-11-29] MEDS: ACCU-CHEK COMFORT CURVE STRIP VI SCH ×3 (06:21→17:00)
[2020-11-29] MEDS: INSULIN LANTUS (GLARGINE) 1 /0.01ml (100units/ml) SC SCH (06:53)
[2020-11-29 07:30] LABS: Basophils # (auto) 0.1 10 ^3/uL (0-0.2); Basophils % (auto) 0.5 % (0.0-2.0); Eosinophils # (auto) 0 10 ^3/uL (0-0.8); Hematocrit 46.7 % (41.0-53.0); Hemoglobin 15.6 g/dL (13.5-17.5); Lymphocytes # (auto) 0.8 10 ^3/uL (0.4-5.4); Mean Corpuscular Hemoglobin 29.2 pg (28.0-32.0); Mean Corpuscular Hgb Conc. 33.4 g/dL (32.0-36.0); Mean Corpuscular Volume 87.4 fL (80.0-100.0); Monocytes # (auto) 0.5 10 ^3/uL (0-1.3); Monocytes % (auto) 2.5 % (0.0-12.0); Neutrophils # (auto) 17.3 10 ^3/uL (1.6-8.6); Platelet Count (auto) 325 10^3/uL (140-450); Red Blood Cells 5.34 10^6/uL (4.5-5.90); White Blood Cell 18.6 10^3/uL (4.4-10.8)
[2020-11-29 07:55] LABS: BUN/Creatinine Ratio 23.6; CRP High Sensitivity 0.22 mg/dL (< 0.3); Calcium 8.4 mg/dL (8.5-10.1); Magnesium 2.4 mg/dL (1.6-2.6); Potassium 4.4 mmol/L (3.5-5.1)
[2020-11-29 08:00] VITALS: BP 171/76
[2020-11-29] MEDS: ALBUTEROL SULF HFA 90MCG INH 200DOSE IN PRN (09:35)
[2020-11-29] MEDS: BUDESONIDE (INHALATION) 180 MCG IH IN SCH (09:35)
[2020-11-29] MEDS: DexAMETHasone SOD PHOS 10MG/1ML VIAL INJ IV SCH (09:52)
[2020-11-29] MEDS: FAMOTIDINE (10MG/ML) 2ML VL IV SCH (09:52)
[2020-11-29] MEDS: ASCORBIC ACID 1,000 MG TAB PO SCH (09:53)
[2020-11-29] MEDS: CHOLECALCIFEROL (VITD3) 2,000 UNIT CAP PO SCH (09:53)
[2020-11-29] MEDS: ASPirin 81 mg TAB PO SCH (09:53)
[2020-11-29] MEDS: ZINC SULFATE 220mg CAP or TAB PO SCH (09:53)
[2020-11-29] MEDS: ENOXAPARIN SOD 40 MG/0.4 ML SYRINGE SC SCH (10:00)
[2020-11-29] MEDS: CARVEDILOL 12.5 MG TAB PO SCH (10:09)
[2020-11-29] MEDS ORDERED: CARVEDILOL 12.5 MG TAB PO ONE (12:30)
[2020-11-29] MEDS ORDERED: ALBUAER3 IN (15:00)
[2020-11-29] MEDS ORDERED: FAMO20TA10 PO (15:00)
[2020-11-29] MEDS ORDERED: DEX4T PO (15:00)
[2020-11-29] MEDS ORDERED: ASPI-378 PO (15:00)
[2020-11-29] MEDS ORDERED: DOXY-286 PO (15:00)
[2020-11-29] MEDS ORDERED: CHOL1CAP47 PO (15:00)
[2020-11-29] MEDS ORDERED: BUDE2SUS3 IN (15:00)
[2020-11-29] MEDS ORDERED: ASCO10003 PO (15:00)
[2020-11-29] MEDS ORDERED: ZINC220T6 PO (15:00)
[2020-11-29 16:01] VITALS: BP 149/66
== END 2020-11-29 18:32 | disposition home or self-care (01) | DRG 871 ==
LOC: ER 06:54 → EDBD 06:54 → TELE 06:55 → TELE-EAST 11-19 13:10
PROVIDERS: ADMIT Hospitalist; ATTEND Internal Medicine
PROC: XW033E5 Introduction of Remdesivir Anti-infective into Peripheral Vein, Percutaneous Approach, New Technology Group 5 (ICD-10-PCS; principal; 2020-11-21)
PROC: XW13325 Transfusion of Convalescent Plasma (Nonautologous) into Peripheral Vein, Percutaneous Approach, New Technology Group 5 (ICD-10-PCS; 2020-11-21)
DX: A41.89 Other specified sepsis (principal); J12.82 Pneumonia due to coronavirus disease 2019; J96.01 Acute respiratory failure with hypoxia; U07.1 COVID-19; E44.0 Moderate protein-calorie malnutrition; I13.0 Hypertensive heart and chronic kidney disease with heart failure and stage 1 through stage 4 chronic kidney disease, or unspecified chronic kidney disease; N17.9 Acute kidney failure, unspecified; E11.22 Type 2 diabetes mellitus with diabetic chronic kidney disease; E66.9 Obesity, unspecified; E78.5 Hyperlipidemia, unspecified; E11.65 Type 2 diabetes mellitus with hyperglycemia; E11.21 Type 2 diabetes mellitus with diabetic nephropathy; D89.839 Cytokine release syndrome, grade unspecified; I50.9 Heart failure, unspecified; N18.9 Chronic kidney disease, unspecified; T38.0X5A Adverse effect of glucocorticoids and synthetic analogues, initial encounter; Z79.84 Long term (current) use of oral hypoglycemic drugs; Z79.899 Other long term (current) drug therapy; Z79.891 Long term (current) use of opiate analgesic; Z79.01 Long term (current) use of anticoagulants; Z68.33 Body mass index [BMI] 33.0-33.9, adult
CPT/HCPCS: 36415; 71045; 80048; 80053; 80061; 80158; 80307; 81001; 82306; 82728; 82962; 83036; 83605; 83615; 83735; 83880; 84100; 84132; 84443; 84484; 85007; 85025; 85027; 85379; 85610; 85730; 86141; 86850; 86900; 86901; 87040; 87086; 87426; 93005; 93306; 93970; 94640; 96365; 96375; 97163; 99291; G0378; J0696; J1100; J1815; J1956; J2543; J3490